=== PATIENT | female | born 1950 | race Caucasian/White ===

== ENCOUNTER → 2016-11-20 | Outpatient (CLI) | payer OTHER | END | disposition home or self-care (01) | LOC: PCVCCLINIC 15:20 | PROVIDERS: ATTEND Internal Medicine | DX: R93.1 Abnormal findings on diagnostic imaging of heart and coronary circulation (principal); E78.5 Hyperlipidemia, unspecified; I10 Essential (primary) hypertension; I65.29 Occlusion and stenosis of unspecified carotid artery; R19.8 Other specified symptoms and signs involving the digestive system and abdomen | CPT/HCPCS: 93005; G0463 ==

== ENCOUNTER → 2018-03-03 | Outpatient (CLI) | payer OTHER | END | disposition home or self-care (01) | LOC: PCVCIMAG 14:50 | DX: I73.9 Peripheral vascular disease, unspecified (principal); I70.8 Atherosclerosis of other arteries | CPT/HCPCS: 93926 ==